=== PATIENT | female | born 1975 | race African-American/Black ===

== ENCOUNTER 2023-12-24 21:19 | Inpatient (IN) | payer BC, SELFPAY ==
[2023-12-24] VITALS (10 sets, daily range): BP systolic 107–137; BP diastolic 61–82
[2023-12-24 15:42] LABS: % Basophils 0.6 % (0-2); % Immature Granulocytes 0.8 % (0-0.5); % Monocytes 11.6 % (1.7-9.3); Absolute Basophils 0.1 10^3/uL (0-0.2); Absolute Immature Granulocytes 0.1 10^3/uL (0-0.05); Absolute Lymphocytes 1.9 10^3/uL (1.2-3.4); Absolute Monocytes 0.9 10^3/uL (0.1-0.6); Absolute Neutrophils 4.8 10^3/uL (1.4-6.5); Hematocrit 44.1 % (37.0-47.0); Hemoglobin 15.4 g/dL (12.0-16.0); Mean Corp Hgb Conc. 34.9 g/dL (33.0-37.0); Mean Corpuscular Hgb 29.5 pg (27.0-31.0); Mean Corpuscular Volume 84.5 fL (81.0-99.0); Mean Platelet Volume 10.3 fL (7.4-10.4); Nucleated Red Blood Cells % 0 %; Platelet Count 281 10^3/uL (130-400); Red Blood Cell Count 5.22 10^6/uL (4.20-5.40); Red Cell Dist. Width 12.9 % (11.5-14.5); White Blood Cell Count 7.8 10^3/uL (4.8-10.8)
[2023-12-24] MEDS: NSS 1000 IV ×2 (16:11→20:48)
[2023-12-24] MEDS: ZOFRAN 4 MG IV (16:11)
[2023-12-24] MEDS: PROTONIX IV 80 MG IV (16:11)
[2023-12-24] MEDS: DILAUDID 1 MG IV (16:11)
[2023-12-24 16:14] LABS: ALT (SGPT) 18 U/L (0-35); AST (SGOT) 18 U/L (14-36); Albumin 4.7 g/dl (3.5-5.0); Alkaline Phosphatase 123 U/L (38-126); Blood Urea Nitrogen 12 mg/dl (7-17); Calcium 10.7 mg/dl (8.4-10.2); Carbon Dioxide < 5 mmol/L (22-30); Chloride 109 mmol/L (98-107); Glucose 329 mg/dl (70-99); Lipase 48 U/L (23-300); Potassium 4.4 mmol/L (3.5-5.1); Sodium 138 mmol/L (135-145); Total Bilirubin 0.7 mg/dl (0.2-1.3); Total Protein 8.4 g/dl (6.3-8.2); eGFR > 60.00
[2023-12-24] MEDS: CARAFATE 1 GRAM PO (16:40)
[2023-12-24] MEDS: MAALOX 50 PO (16:40)
[2023-12-24 16:46] LABS: Venous Blood Gas B.E. -21.4 mmol/L (-4 to +4); Venous Blood Gas HCO3 6.5 mmol/L (22-27); Venous Blood Gas pCO2 21 mmHg (35-48); Venous Blood Gas pO2 97 mmHg (30-50)
[2023-12-24 17:40] LABS: B-Hydroxybutyrate > 9.0 mmol/L (0.02-0.27)
--- NOTE | 2023-12-24 17:44 | ED.GENMED ---
History of Present Illness
General
Chief Complaint: Abdominal Symptoms
Source: patient
Exam Limitations: none
Time Seen by Provider: 12/24/23 15:31
Nursing documentation reviewed up to this point in time: agreed with
History of Present Illness
History of Present Illness:
Patient is a 48-year-old female presents to the emergency department complaining of chest pain with chills and weakness. Patient states she can eat for the past 2 days. Patient's had continuous nausea and vomiting. Patient denies any melena or
hematochezia. Patient denies any diarrhea. Patient denies lightheadedness. Patient was placed on steroids for back pain. Since then the patient has gotten progressively worse. Patient does not take any other medications. Patient denies
shortness of breath or palpitations. Patient denies any symptoms.
Past History
Past History
ED Past Medical History: None
ED Past Surgical History:
Social History
Tobacco: Non-smoker
Review of Systems
Review of Systems
All Other Systems: ROS reviewed and negative except as documented in HPI and ROS
Constitutional: Reports fatigue and chills; Denies fever
EENT: Reports no symptoms
Respiratory: Reports no symptoms
Cardiac: Reports chest pain
ABD/GI: Reports abdominal pain, nausea, vomiting and anorexia; Denies diarrhea, bloody stools or black stools
: Reports no symptoms
Musculoskeletal: Reports no symptoms
Skin: Reports no symptoms
Neurological: Reports no symptoms
Hematologic/Lymphatic: Reports no symptoms
Phy Exam
Physical Exam
Physical Exam:
Physical Exam
General: No apparent significant distress, alert and appropriate, well nourished, dry mucous membranes
HENT: Normocephalic, supple with no lymphadenopathy, no thyromegaly
Eyes: Clear sclera, conjuctiva without injection
Heart: Regular rhythm and rate. No S3, S4. No murmur. No NVD
Lungs: No respiratory distress, no stridor, lung sounds clear and equal bilaterally, chest wall symmetrical and nontender
Abdomen: Soft, diffuse midepigastric tenderness without guarding or rebound, no organomegaly, no CVA tenderness, BS good
Neuro: Alert and oriented x 3, CN II - XII intact, no motor focality, no cerebellar dysfunction
Skin: no rash
Psychiatric: well kept. interactive and cooperative
Extremities: No edema, cyanosis, tenderness
Course
Orders/Labs/Results
Orders:
Orders
12/24/23 14:02
EKG [Electrocardiogram (*1)] Urgent
Reason for Study: Shortness of Breath
EKG- Treatment ONCE
12/24/23 15:20
IV Insert/Care/Rem.- Treatment PRN
Urinalysis Reflex To Culture Urgent
Date Specimen was Collected: 12/24/23
Time Specimen was Collected: 15:20
12/24/23 15:33
B-Hydroxybutyrate Urgent
Comment: B-HYDROXYBUTYRATE ADDED ON BY FLOOR 4:30PM 12-24-23
Complete Blood Count/With Diff Urgent
Comprehensive Metabolic Panel Urgent
HCG, Serum Qualitative Screen Urgent
Lipase Urgent
12/24/23 16:03
0.9% Sodium Chloride 1000 ml [Nss] 1,000 ml IV BOLUS
HYDROmorphone [Dilaudid] 1 mg IV NOW STA
Ondansetron Injectable [Zofran] 4 mg IV NOW STA
Pantoprazole [Protonix IV] 80 mg IV NOW STA
Sucralfate [Carafate] 1 gram PO NOW STA
12/24/23 16:04
Mag Hydrox/Al Hydrox/Simeth [Maalox] 30 ml Phenobarb/Hyoscy/Atropine/Scop [] 10 ml Viscous Lidocaine 2% [Xylocaine Viscous Cup] 10 ml PO NOW
12/24/23 16:08
Mag Hydrox/Al Hydrox/Simeth [Maalox] 30 ml .ROUTE .STK-MED ONE
Phenobarb/Hyoscy/Atropine/Scop [] 10 ml .ROUTE .STK-MED ONE
12/24/23 16:09
Viscous Lidocaine 2% [Xylocaine Viscous Cup] 15 ml .ROUTE .STK-MED ONE
12/24/23 16:30
B-Hydroxybutyrate Urgent
Lactic Acid Urgent
12/24/23 16:31
CT Abd/Pel (IV only)-DH only Urgent
Comment:
Reason For Exam: diffuse abd pain/tender
12/24/23 16:34
Add On- LAB Urgent
Tests Added?: b-hydroxybutyrate
12/24/23 16:38
Venous Blood Gas Urgent
%Oxygen/Room Air: 21
12/24/23 17:33
Add On- LAB Urgent
Tests Added?: qualitative hcg serum
12/24/23 17:44
Bedside Glucose- Treatment Q1H
IV Insert/Care/Rem.- Treatment PRN
Insulin Human Regular [Novolin R] 8 units IV NOW STA
Reg Insulin 100 Units/100 ml [Novolin R Insulin Infusion] 100 units in 100 ml IV NOW
12/24/23 17:45
Basic Metabolic Panel Q2H
12/24/23 18:00
KCl 20 Meq/D5.45%Sodchl 1000ML [D5/0.45%NSS with KCL 20 MEQ] 20 meq in 1,000 ml IV 200 mls/hr
12/24/23 19:45
Basic Metabolic Panel Q2H
12/24/23 21:45
Basic Metabolic Panel Q2H
Abnormal Lab Results
12/24/23 12/24/23
15:33 16:38
Abs Immat Gran (auto) 0.1 H 10^3/uL
(0-0.05)
Absolute Monos (auto) 0.9 H 10^3/uL
(0.1-0.6)
Immature Gran % 0.8 H %
(0-0.5)
Monocytes % 11.6 H %
(1.7-9.3)
VBG pH 7.10 L*
(7.32-7.43)
VBG pCO2 21 L mmHg
(35-48)
VBG pO2 97 H mmHg
(30-50)
VBG HCO3 6.5 L mmol/L
(22-27)
Chloride 109 H mmol/L
(98-107)
Carbon Dioxide < 5 L* mmol/L
(22-30)
Creatinine 0.5 L mg/dL
(0.6-1.0)
Glucose 329 H mg/dl
(70-99)
Calcium 10.7 H mg/dl
(8.4-10.2)
Total Protein 8.4 H g/dl
(6.3-8.2)
B-Hydroxybutyrate > 9.0 H mmol/L
(0.02-0.27)
12/24/23 15:33
Vital Signs
Initial and Last Documented VS:
Initial Vital Signs
Temp Pulse Resp BP Pulse Ox
97.9 F 114 16 126/82 98
12/24/23 13:58 12/24/23 13:58 12/24/23 13:58 12/24/23 13:58 12/24/23 13:58
Last Documented Vital Signs
Temp Pulse Resp BP Pulse Ox
97.9 F 108 17 123/71 99
12/24/23 13:58 12/24/23 17:15 12/24/23 17:15 12/24/23 17:00 12/24/23 17:15
*Pulse Oximetry
Patient hypoxic: no
*EKG
Interpreted by ED Provider?: Yes
EKG Intrepretation Date: 12/24/23
EKG Intrepretation Time: 17:46
Interpretation: abnormal
Comparison EKG: no comparison EKG present
Heart Rate: 110
Rate: tachycardiac
Rhythm: sinus
[place]: normal axis
Interval: normal interval
QRS Pattern: normal QRS
Ischemia: no ischemia
*Third Hand Interpretation
Rate: tachycardiac
Interpretation: abnormal
Heart Rate: 110
Rhythm: sinus
*Critical Care Note
Total Time (30-74mins, 75-104mins- exclusive of procedures): 45 minutes
Update Note
Update Note:
Patient has a significant gapped metabolic acidosis. Patient's blood sugar is elevated. Patient does not take any medications. Because the patient's blood sugars in the 300s we will start the patient on D5 5 with half-normal given that the sodium
is normal range and add potassium. Expect potassium to fall. Patient will be admitted.
ED Attending Note
-
Portions of this chart may have been created with voice recognition software.� Occasional wrong word or��sound alike� substitutions may have occurred due to the inherent limitations of voice recognition software.
Discharge Plan
Departure
Patient Disposition: Admit
Date of Disposition: 12/24/23
Time of Disposition: 17:48
Admit to: ICU
Admit to doctor: Hospitalist
Presentation/result/management discussed w/ accepting MD/DO: Hospitalist
Patient with high blood pressure during this ER visit?: No
Condition: Serious
Covid-19: Not Applicable
Discharge Problem:
Metabolic acidosis, DKA (diabetic ketoacidosis)
Prescriptions:
No Action
methylprednisolone 4 mg Tablets,Dose Pack
0 mg PO PER PKG DIR
cyclobenzaprine 5 mg tablet
5 mg PO TIDPRN PRN (Reason: muscle spasms)
Referrals:
NONE,* [Family Provider] -
Interventions
Interventions:
*Risk Screen - Suicide Last Done: 12/24/23 15:41
*General Assessment Last Done: 12/24/23 15:42
*Neglect/Abuse Screening Last Done: 12/24/23 15:41
ED- Fall Risk Assessment Last Done: 12/24/23 15:41
*ED COVID-19 Vaccine History Last Done: 12/24/23 15:42
FW-Ubcllt-Pygufcmnhx Assessment Last Done: 12/24/23 15:40
Discharge Date and Time
Print Language: SWEDISH
[2023-12-24 18:24] LABS: HCG, Serum Qualitative Screen Negative
[2023-12-24] MEDS: D5/0.45%NSS with KCL 20 MEQ 30 IV (18:25)
[2023-12-24 18:28] LABS: Glucose - Point of Care 343 mg/dl (70-99)
[2023-12-24 18:35] LABS: Blood Urea Nitrogen 12 mg/dl (7-17); Calcium 9.4 mg/dl (8.4-10.2); Carbon Dioxide < 5 mmol/L (22-30); Chloride 112 mmol/L (98-107); Glucose 313 mg/dl (70-99); Potassium 4.6 mmol/L (3.5-5.1); Sodium 138 mmol/L (135-145); eGFR > 60.00
[2023-12-24] MEDS: NOVOLIN R 8 UNITS IV (18:36)
[2023-12-24] MEDS: NOVOLIN R INSULIN INFUSION 100 IV ×2 (18:37→22:30)
[2023-12-24 19:42] LABS: Glucose - Point of Care 284 mg/dl (70-99)
[2023-12-24 20:28] LABS: Blood Urea Nitrogen 11 mg/dl (7-17); Calcium 9.6 mg/dl (8.4-10.2); Carbon Dioxide < 5 mmol/L (22-30); Chloride 112 mmol/L (98-107); Estimated Creatinine Clearance 107 ml/min; Glucose 215 mg/dl (70-99); Potassium 3.7 mmol/L (3.5-5.1); Sodium 139 mmol/L (135-145); eGFR > 60.00
[2023-12-24] MEDS: D5/0.45%NSS with KCL 20 MEQ 1000 IV (20:31)
[2023-12-24 20:48] LABS: Glucose - Point of Care 175 mg/dl (70-99)
--- NOTE | 2023-12-24 21:01 | HPS.HSE ---
Family Physician
-
Family Physician: * NONE
Chief Complaint
-
Nausea and vomiting
History of Present Illness
48-year-old female with no known major medical disease, who was recently-lower back pain went to urgent care 2 weeks to and started on Medrol Dosepak and Flexeril, she completed the doses, over the last few days she was not been feeling
well-progressively worsening epigastric pain with indigestion with nausea and nonbloody vomiting, admit basically was unable to eat anything over the last few days, denies any diarrhea or any bleeding event or change in stool color.
Denies any chest pain or shortness of breath or cough or congestion, no headache or vision change or any weakness or numbness in extremity, sick contacts or recent travel dining outside.
Patient admitted prior to starting the steroid she was taking NSAID regularly for this back pain
Reportedly she is not taking any medication and she lives with the family independently there is a strong family history of diabetes including her mother.
Workup in the ER basically showed severe metabolic acidosis venous pH is 7.1 and her sugar was 300.
Given a liter of normal saline also Protonix IV and Carafate also started on insulin drip with D5 normal saline and potassium as her potassium initially was 4.5 and trended down to 3.7
Overall she is feeling better more rejuvenated she thinks she feels hungry and she wants to eat something. Accompanied by her daughter at the bedside.
Medical History
Past Medical History
Past Medical History: Reports Other
Additional Past Medical History:
Past medical history reviewed: None
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
Family history: Strongly positive for diabetes and multiple family members including her mother.
Past Surgical History: Reports Other
Social History
Unable to obtain full social history at this time due to: Other
Living: Other
Family History
Family History: Other
Allergies / Home Medications
Allergies reflects when Allergies were last updated in [facility].
Home Medications with original date entered in [facility]
Allergy/Medication List:
Allergies
Allergy/AdvReac Type Severity Reaction Status Date / Time
No Known Allergies Allergy Verified 12/24/23 13:58
Home Medications
Patient currently not taking any medication, Completed Flexeril and muscle prednisone.
Review of Systems
-
A 12 point ROS was completed and negative except as noted: Yes
Physical Exam
Vital Signs
Vital Signs
Temp Pulse Resp BP Pulse Ox
97.9 F 110 17 107/69 100
12/24/23 13:58 12/24/23 20:00 12/24/23 20:00 12/24/23 20:00 12/24/23 20:00
Physical exam:
General: Awake, alert and oriented x3, not in distress and holds appropriate conversation.
HEENT: No active discharge, ecchymosis or bruising, dry lips, tongue and mucous membrane.
Eyes: No discharge or red conjunctiva, no nystagmus, pupils are reactive and equal
Neck:Supple, no JVD no bruit no goiter.
Respiratory: Normal AP contour and diameter, normal chest wall movement, normal respiratory effort, no respiratory distress,
Lungs: Good air entry bilaterally, no wheezing or rhonchi, no rales or crackles
Heart: S1, S2 regular, normal rate, no added sound.
Gastrointestinal: Positive bowel sounds, soft, nontender, no guarding or rigidity or organomegaly
Musculoskeletal: , no chest wall abnormality or tenderness. All joints and extremities have good range of motion, no muscle tenderness or any joint swelling or tenderness.
Extremities: No pitting edema, good peripheral pulses, good range of motion
Skin: Warm and dry, no ulceration, normal color.
Neurological: Awake, alert and oriented x3, speech clear and comprehensive, good muscle tone, normal sensory and motor function
Psychiatric: Normal mood, normal thought and judgment, normal affect,
Physical Exam
General: Other
Laboratory Results
-
12/24/23 15:33
Laboratory Results
Lactic Acid Cancelled 12/24/23 16:30
Total Bilirubin 0.7 mg/dl (0.2-1.3) 12/24/23 15:33
AST 18 U/L (14-36) 12/24/23 15:33
ALT 18 U/L (0-35) 12/24/23 15:33
Alkaline Phosphatase 123 U/L (38-126) 12/24/23 15:33
Lipase 48 U/L (23-300) 12/24/23 15:[address]
CT abd and Pelvis:
Mild hepatomegaly.
Limited evaluation of intestinal tract as a result of lack of oral contrast and paucity of intra-abdominal fat, without intestinal obstruction, free air or gross focal right lower quadrant inflammatory changes.
Renal excretion predominantly symmetric.
EKG shows sinus tachycardia rate around 110, AR 142, QTc 443 otherwise no acute abnormality
Data Reviewed
-
CT Scan: Image Personally Visualized and interpreted and Discussed with Patient
Medical Tests (Nuc Med, Echo, EKG etc): Image Personally Visualized and interpreted and Discussed with Patient
Lab Data: Labs Reviewed by me and Discussed with Patient
Impression/Plan
-
IMPRESSION:
48-year-old female with no known major medical history, presented to the hospital complaining of epigastric pain, nausea and nonbloody vomiting over the last 3 to 4-day with not able to keep anything down and was not been eating drinking much, all
of these preceded by taking the Medrol Dosepak for back pain prior to this was taking NSAID, workup in the ER concerning for metabolic acidosis and likely DKA with no known history of diabetes in the past.
Metabolic acidosis
Diabetic ketoacidosis
Probable undiagnosed history of diabetes
Strong family history of diabetes
Dehydration
Nausea and vomiting
Epigastric pain likely gastritis given peptic ulcer disease could be considered with taking NSAIDs and steroid.
PLAN:
Admitted in ICU because of severe acidosis
Follow DKA protocol
Continue insulin drip with D5 and half-normal saline and potassium
Check BMP and venous blood gas every 2 hours
Check magnesium and phosphorous
Will give another liter of normal saline right now
Close monitoring of blood sugar and vital sign
Once DKA resolved then we may need to give her subcutaneous insulin an hour or 2 before discontinuing the insulin drip and starting Accu-Chek
Check A1c to rule out diabetes if any otherwise is elevated sugar and DKA possibly related to the steroid but very likely she has diabetes based on a strong family history.
Critical care consult
Check TSH, B12 and folic acid
Start PPI IV and Maalox as needed
Overall feels better and if epigastric pain and burning is continue also symptomatic in regard nausea and vomiting we will get a GI consult
If the workup showed diabetes and need endocrinology consult on referral.
She is feeling better I will start on full liquid diet and advance as tolerated
All discussed with the patient in detail and expressed understanding
Discussed with daughter at the bedside
Discussed with the nurse
DVT prophylaxis Lovenox
CODE STATUS is full
[2023-12-24 21:21] LABS: Venous Blood Gas B.E. -16.4 mmol/L (-4 to +4); Venous Blood Gas HCO3 10.5 mmol/L (22-27); Venous Blood Gas O2 Sat % 85.1 %; Venous Blood Gas pCO2 28 mmHg (35-48); Venous Blood Gas pO2 50 mmHg (30-50)
--- NOTE | 2023-12-24 21:21 | EDRN ---
Attempted to call report to ICU - will call back.
[2023-12-24 21:28] LABS: Venous Blood Gas pH 7.18 (7.32-7.43)
--- NOTE | 2023-12-24 21:30 | EDRN ---
Report given to Dereje in ICU
--- NOTE | 2023-12-24 21:40 | PTCARENOTE ---
Received pt from ER approx 2140.
AAOX3, no neurological deficits noted upon assessment.
Sinus tach, Normotensive, normothermic.
On insulin gtt, d5/0.45 w/ 20 K from ER, see flowsheet/mar for further details.
Anion gap 22 from ER labs, glucose 266 from ER.
Daughter bedside, all questions answered at this time.
[2023-12-24 22:00] LABS: Glucose - Point of Care 266 mg/dl (70-99)
[2023-12-24 23:30] LABS: Glucose - Point of Care 144 mg/dl (70-99)
[2023-12-24 23:44] LABS: Blood Urea Nitrogen 11 mg/dl (7-17); Carbon Dioxide 9 mmol/L (22-30); Chloride 112 mmol/L (98-107); Estimated Creatinine Clearance 107 ml/min; Glucose 155 mg/dl (70-99); Magnesium 1.9 mg/dl (1.6-2.3); Phosphorus 2.2 mg/dl (2.5-4.5); Potassium 4.5 mmol/L (3.5-5.1); Sodium 135 mmol/L (135-145); eGFR > 60.00
--- NOTE | 2023-12-24 23:55 | PTCARENOTE ---
Cont. on insulin gtt. see titration flowsheet for details.
Remains on d5/0.45 nss 20 meq.
sleeping, all vitals stable, assessment WNL.
[2023-12-25] VITALS (15 sets, daily range): BP systolic 94–135; BP diastolic 55–84; BMI 27.3
[2023-12-25 00:06] LABS: INR 1.09; PT 13.9 Sec (11.4-14.6)
[2023-12-25 00:07] LABS: APTT 24.6 Sec (23.4-35.0)
[2023-12-25 00:44] LABS: Glucose - Point of Care 170 mg/dl (70-99)
[2023-12-25 01:54] LABS: Glucose - Point of Care 158 mg/dl (70-99)
[2023-12-25 02:06] LABS: Blood Urea Nitrogen 11 mg/dl (7-17); Calcium 8.6 mg/dl (8.4-10.2); Carbon Dioxide 9 mmol/L (22-30); Chloride 113 mmol/L (98-107); Estimated Creatinine Clearance 107 ml/min; Glucose 170 mg/dl (70-99); Potassium 4.2 mmol/L (3.5-5.1); Sodium 135 mmol/L (135-145); eGFR > 60.00
[2023-12-25 02:40] LABS: Glucose - Point of Care 153 mg/dl (70-99)
[2023-12-25 03:43] LABS: Glucose - Point of Care 151 mg/dl (70-99)
--- NOTE | 2023-12-25 04:09 | PTCARENOTE ---
Remains on insulin gtt, d5/0.45 w/ 20 meq.
Anion gap closing @ 13, formula w/o albumin/K.
Assessment remains at baseline w/o changes.
New line placed.
--- NOTE | 2023-12-25 04:18 | PTCARENOTE ---
Pt refused all morning lab work. ICU Provider aware.
[2023-12-25] MEDS: D5/0.45%NSS with KCL 20 MEQ 1000 IV ×2 (04:21→12:47)
[2023-12-25 04:35] LABS: Glucose - Point of Care 160 mg/dl (70-99)
[2023-12-25 05:49] LABS: Glucose - Point of Care 162 mg/dl (70-99)
[2023-12-25 06:42] LABS: Glucose - Point of Care 184 mg/dl (70-99)
--- NOTE | 2023-12-25 07:16 | CON.INTV ---
Consultation
Consultation Request
Date/Time Consultation Requested: 12/25/23
Date/Time Consultation Performed: 12/25/23
Performing Provider: Yandel
Reason for Consultation: ICU
Medical History
-
History of Present Illness:
Patient is a 48-year-old female with no significant past medical history presenting to the hospital with epigastric pain, nausea and vomiting over the past 3 to 4 days. She also notes decreased p.o. intake. In the ER, she was noted to have blood
sugar over 300, venous pH 7.1 with anion gap metabolic acidosis suggesting new onset diabetes complicated by diabetic ketoacidosis. She is admitted to ICU for insulin drip. She has no previous history of diabetes but there is strong family history.
Past Medical History
Past Medical History: Other (see list below)
Social History
Tobacco: Non-smoker
Alcohol: None
Drug: None
Family History
Family History: Reviewed & Not Pertinent
Allergies / Home Medications
Allergies
Allergy/AdvReac Type Severity Reaction Status Date / Time
No Known Allergies Allergy Verified 12/24/23 13:58
Home Medications
�Medication �Instructions �Recorded �Confirmed �Last Taken �Type
cyclobenzaprine 5 mg tablet 5 mg PO TIDPRN PRN muscle spasms 12/24/23 12/24/23 2 Days Ago History
~12/22/23
methylprednisolone 4 mg tablets in 0 mg PO PER PKG DIR 12/24/23 12/24/23 2 Days Ago History
a dose pack Anti-Inflammatory ~12/22/23
Review of Systems
-
History Source: Patient
All other systems: Negative unless noted
Vitals / Labs / Diagnostic Testing
Vital Signs
Temp Pulse Resp BP Pulse Ox
98.5 F 85 11 106/58 100
12/25/23 03:38 12/25/23 05:00 12/25/23 05:00 12/25/23 05:00 12/25/23 05:00
Laboratory Results
12/24/23
22:35
PT 13.9
INR 1.09
APTT 24.6
Diagnostic Testing:
Physical Exam
-
HEENT: Normocephalic, Anicteric and Moist Mucous Membranes
Cardiovascular: S1/S2 and Regular Rhythm
Respiratory: Clear and Non-Labored Respirations
GI: Soft, Non Distended and Non Tender
Neurology: Awake, Alert, Oriented, AO x 3 and No Motor Deficits
Skin: Warm, Dry and Good Color
General: Comfortable and Other (NAD)
Assessment
-
Patient is a 48-year-old female with no significant past medical history presenting to the hospital with epigastric pain, nausea and vomiting over the past 3 to 4 days. She also notes decreased p.o. intake. In the ER, she was noted to have blood
sugar over 300, venous pH 7.1 with anion gap metabolic acidosis suggesting new onset diabetes complicated by diabetic ketoacidosis. She is admitted to ICU for insulin drip.
Diabetic ketoacidosis
New onset Diabetes
Strong family history of diabetes
Anorexia, decreased PO intake
Nausea and vomiting
Epigastric pain
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
None
Plan
DKA, admitting BS elevated, AG >25--now 13
Started on insulin drip, can wean today following protocol, start D5 IVFs
Consult diabetic nurse for insulin recommendations
Can restart diet once able to bridge
New onset diabetes, we discussed insulin use at home
She has no PCP, needs to get one
HbA1c pending
Education
Diet transition following DKA protocol
GI ppx not indicated
Hemodynamically stable, not requiring pressors.
No prior h/o cardiac disease
Monitor on telemetry
Oxygen needs: Stable on RA
No prior h/o pulmonary disease, smoking hx includes trivial use when younger, never pack use
Imaging reviewed without acute findings
Creat at baseline, follow UO
Acid/base status: AGMA 2/2 DKA, follow until AG <12
No signs/symptoms suspicious for infectious etiology at this time.
Will observe off antibiotics for now.
Follow fever trend, WBC count.
DVT ppx SCDs
Once transitioned off insulin protocol can transfer to floors. We will sign off upon transfer.
Diagnostic Data
Chest X-Ray: NAD
CT Scan: AP 12/24/23- Mild hepatomegaly. Limited evaluation of intestinal tract as a result of lack of oral contrast and paucity of intra-abdominal fat, without intestinal obstruction, free air or gross focal right lower quadrant inflammatory
changes. Renal excretion predominantly symmetric.
Echo:
PFT's:
Reports and relevant images were personally reviewed.
-----
Critical care time 50 mins -- this includes review of history, physical exam, medications, hemodynamic/ventilator parameters, laboratory data, imaging and discussion with house staff, pharmacy, respiratory therapy, centrifugal supervisor, and nursing.
[2023-12-25 07:57] LABS: Glucose - Point of Care 157 mg/dl (70-99)
--- NOTE | 2023-12-25 08:15 | W.PN.HOSP.TC ---
Today's Communication/Plan
-
NPO
renew insulin drips/IVF
replete lytes/ions
Assessment / Plan
Assessment / Plan
pt is a 48 year old female
Metabolic acidosis likely due to Diabetic ketoacidosis with remote hx of DM in past (she told me)(Strong family history of diabetes)--cont DKA protocol with IV insulin, Q4 BMP and hourly accuchecks--replete lytes/ions--Once DKA resolved then we may
need to give her subcutaneous insulin an hour or 2 before discontinuing the insulin drip and starting Accu-Chek, will consult DM [facility] for insulin management in AM--HGB A1C pending--TSH, B12 and folic acid pending
Dehydration likely due to Nausea and vomiting as well as DKA--IVF--keep NPO for now until AGAP closes
Epigastric pain likely gastritis given peptic ulcer disease could be considered with taking NSAIDs and steroid--cont IV PPI
DVT prophylaxis Lovenox
CODE STATUS-- full code
Total Critical Care Time 31 minutes. I was immediately available to the patient and staff. I personally examined, reviewed labs, diagnostic images/reports, interpretations, treatment plans, discussed patient care with other providers and family
or caregivers (if patient is unable to make decisions), entered orders as appropriate and documented the medical record.
Anticipated Discharge: 24 - 48 hours
Subjective/Interval History
-
Date of Service: December 25, 2023
pt asking when she is going home--nursing reports refused labs overnight
Objective Data
-
Labs:
Laboratory Results
12/24/23 12/24/23 12/24/23
19:56 21:45 22:35
WBC
Hgb
Hct
Plt Count
PT 13.9
INR 1.09
APTT 24.6
Sodium 139 Cancelled 135
Potassium 3.7 Cancelled 4.5
Chloride 112 H Cancelled 112 H
Carbon Dioxide < 5 L* Cancelled 9 L*
BUN 11 Cancelled 11
Creatinine 0.5 L Cancelled 0.4 L
Glucose 215 H Cancelled 155 H
Calcium 9.6 Cancelled 9.0
12/25/23 12/25/23 12/25/23
01:41 06:00 10:00
WBC Pending
Hgb Pending
Hct Pending
Plt Count Pending
PT
INR
APTT
Sodium 135 Pending Pending
Potassium 4.2 Pending Pending
Chloride 113 H Pending Pending
Carbon Dioxide 9 L* Pending Pending
BUN 11 Pending Pending
Creatinine 0.4 L Pending Pending
Glucose 170 H Pending Pending
Calcium 8.6 Pending Pending
12/25/23 12/25/23 12/25/23
14:00 18:00 22:00
WBC
Hgb
Hct
Plt Count
PT
INR
APTT
Sodium Pending Pending Pending
Potassium Pending Pending Pending
Chloride Pending Pending Pending
Carbon Dioxide Pending Pending Pending
BUN Pending Pending Pending
Creatinine Pending Pending Pending
Glucose Pending Pending Pending
Calcium Pending Pending Pending
Vital Signs:
max temp for 24 hours
12/25/23
03:38
Temp 98.5 F
Vital Signs
Temp Pulse Resp BP Pulse Ox
98.3 F 85 11 106/58 100
12/25/23 07:37 12/25/23 05:00 12/25/23 05:00 12/25/23 05:00 12/25/23 05:00
I&O
12/24/23 12/25/23 12/26/23
06:59 06:59 06:59
Intake Total 966 / 966
Output Total 0 / 0
Balance 966 / 966
Review of Systems
-
All other systems: Reviewed and negative
Physical Exam
-
General: Well Developed, Well Nourished and No Apparent Distress
HEENT: Normocephalic and Atraumatic
Respiratory: Clear to Auscultation; Negative Wheezes or Rhonchi
Cardiac: Regular Rhythm and S1/S2; Negative Murmur
GI: Soft, Nontender, Nondistended and Normal Bowel Sounds
Musculoskeletal: No Clubbing, No Cyanosis and No Edema
Neuro: Awake and Alert
Psych: Calm
[2023-12-25] MEDS: PROTONIX IV 40 MG IV (08:23)
[2023-12-25] MEDS: NSS (PRESERVATIVE FREE) 10 ML IV (08:23)
--- NOTE | 2023-12-25 08:30 | PTCARENOTE ---
Assumed care of pt at 0715 following shift report. Pt asleep, woken easily to name. Denies complaints of pain or SOB. Insulin gtt and IVF D5 1/2NS w/ 20 meq KCL @ 125ml/hr per ordered protocol. Physical assessment completed as documented. Pt
agreeable to lab draws at this time- specimen sent to lab. Pt placed on tele pack for ease of mobility. Pt able to ambulate to BR w/o assistance- gait steady. Pt reports recent hx of MAYER at home- none noted w/ ambulation to BR. Call bobby w/in pt
reach and safe environment maintained.
[2023-12-25 08:39] LABS: Hematocrit 34.7 % (37.0-47.0); Hemoglobin 12.4 g/dL (12.0-16.0); Mean Corp Hgb Conc. 35.7 g/dL (33.0-37.0); Mean Corpuscular Hgb 29.4 pg (27.0-31.0); Mean Corpuscular Volume 82.2 fL (81.0-99.0); Mean Platelet Volume 10.1 fL (7.4-10.4); Platelet Count 238 10^3/uL (130-400); Red Blood Cell Count 4.22 10^6/uL (4.20-5.40); White Blood Cell Count 6.7 10^3/uL (4.8-10.8)
[2023-12-25 08:40] LABS: Venous Blood Gas B.E. -7.6 mmol/L (-4 to +4); Venous Blood Gas HCO3 17.4 mmol/L (22-27); Venous Blood Gas O2 Sat % 96.2 %; Venous Blood Gas O2 Therapy RA; Venous Blood Gas pCO2 33 mmHg (35-48); Venous Blood Gas pH 7.33 (7.32-7.43); Venous Blood Gas pO2 72 mmHg (30-50)
[2023-12-25 09:08] LABS: Glucose - Point of Care 164 mg/dl (70-99)
[2023-12-25 09:53] LABS: Blood Urea Nitrogen 10 mg/dl (7-17); Calcium 9.2 mg/dl (8.4-10.2); Carbon Dioxide 15 mmol/L (22-30); Chloride 112 mmol/L (98-107); Estimated Creatinine Clearance 107 ml/min; Glucose 177 mg/dl (70-99); Magnesium 1.9 mg/dl (1.6-2.3); Phosphorus 1.5 mg/dl (2.5-4.5); Sodium 135 mmol/L (135-145); eGFR > 60.00
[2023-12-25 10:07] LABS: Glucose - Point of Care 161 mg/dl (70-99)
[2023-12-25 11:07] LABS: Glucose - Point of Care 160 mg/dl (70-99)
[2023-12-25 11:12] LABS: Folate > 20.0 ng/ml (2.76-20); Vitamin B12 > 1000 pg/ml (239-931)
[2023-12-25 11:24] LABS: Glycohemoglobin (HgbA1c) 13.2 % (4.0-5.6)
--- NOTE | 2023-12-25 12:00 | PTCARENOTE ---
Pt sitting OOB in chair. Ambulating to BR to void prn. No complaints received or changes from previous assessment findings noted.
[2023-12-25 12:09] LABS: Glucose - Point of Care 178 mg/dl (70-99)
[2023-12-25 13:16] LABS: Glucose - Point of Care 154 mg/dl (70-99)
[2023-12-25] MEDS: NEUTRA-PHOS POWDER PACKET 250 MG PO ×3 (14:03→23:16)
[2023-12-25 14:11] LABS: Glucose - Point of Care 147 mg/dl (70-99)
[2023-12-25 14:53] LABS: Blood Urea Nitrogen 9 mg/dl (7-17); Carbon Dioxide 15 mmol/L (22-30); Chloride 113 mmol/L (98-107); Estimated Creatinine Clearance 107 ml/min; Glucose 158 mg/dl (70-99); Potassium 3.6 mmol/L (3.5-5.1); Sodium 135 mmol/L (135-145); eGFR > 60.00
[2023-12-25 15:39] LABS: Glucose - Point of Care 175 mg/dl (70-99)
[2023-12-25] MEDS: LANTUS 0.0500000000000000028 UNITS SC (15:49)
[2023-12-25] MEDS: NOVOLOG FLEXPEN 5 UNITS SC (16:03)
[2023-12-25] MEDS: NOVOLOG FLEXPEN-MODERATE RESISTANCE 1 UNITS SC (16:03)
[2023-12-25 16:16] LABS: Glucose - Point of Care 164 mg/dl (70-99)
--- NOTE | 2023-12-25 16:50 | PTCARENOTE ---
Pt's anion gap wnl. Dr Koenig aware- orders received. Lantus given as ordered at 1548 and Insulin gtt and D5 1/2NS w/ 20meq KCL d/c'ed at 1648. Pt tolerating diet w/o complication. Pt's daughter here to visit. Pt and her daughter ambulated in
hallway. Pt's gait steady- tolerating increased activity w/o complaint or complication.
[2023-12-25 17:24] LABS: Glucose - Point of Care 188 mg/dl (70-99)
[2023-12-25] MEDS: D5/0.45%NSS with KCL 20 MEQ IV (18:02)
[2023-12-25] MEDS: LOVENOX 40 MG SC (18:23)
[2023-12-25 19:02] LABS: Blood Urea Nitrogen 10 mg/dl (7-17); Calcium 8.8 mg/dl (8.4-10.2); Carbon Dioxide 16 mmol/L (22-30); Chloride 110 mmol/L (98-107); Estimated Creatinine Clearance 107 ml/min; Glucose 234 mg/dl (70-99); Potassium 3.9 mmol/L (3.5-5.1); Sodium 132 mmol/L (135-145); eGFR > 60.00
--- NOTE | 2023-12-25 20:00 | PTCARENOTE ---
rec`d pt at 1900 laying in bed AAOx3. flat affect. on tele pack- SR-ST . OOB ad rona. +pulses. RA POX 99%. uses bathroom self. 22left fa and 18 LAC. plan to check chemistry at 2200. call rosales in reach. safe environment maintained. pt educated on
condition.
--- NOTE | 2023-12-25 21:50 | PTCARENOTE ---
pt refused blood work. pt educated on why she needs it taken. still refusing blood work.
[2023-12-25 22:59] LABS: Glucose - Point of Care 203 mg/dl (70-99)
[2023-12-25] MEDS: LANTUS 0.149999999999999994 UNITS SC (23:00)
--- NOTE | 2023-12-26 04:05 | PTCARENOTE ---
pt refused blood work. pt educated on why she needs it taken. still refusing blood work.
[2023-12-26 05:32] VITALS: BMI 27.4
--- NOTE | 2023-12-26 06:43 | W.PN.INTV ---
Today's Communication / Plan
Recommendations
Continue with diabetic education
Follow blood sugars. Unfortunate patient refusing labs
For transfer out of ICU. We will sign off. Please call with questions
Assessment
-
Patient is a 48-year-old female with no significant past medical history presenting to the hospital with epigastric pain, nausea and vomiting over the past 3 to 4 days. She also notes decreased p.o. intake. In the ER, she was noted to have blood
sugar over 300, venous pH 7.1 with anion gap metabolic acidosis suggesting new onset diabetes complicated by diabetic ketoacidosis. She is admitted to ICU for insulin drip.
Diabetic ketoacidosis
New onset Diabetes
Strong family history of diabetes
Anorexia, decreased PO intake
Nausea and vomiting
Epigastric pain
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
None
Plan/recommendations
Unfortunately, patient is refusing labs
Last blood sugar 203
Off insulin drip
Gap resolved as of yesterday p.m.
Diet has been resumed
Patient apparently had diabetes during in the past, was not aware that she had presently
She does not see a primary physician
Continue with education, nutritional support, diabetic nurse teaching
I educated patient on importance of blood sugar management
Hemoglobin A1c 13.2
Oxygen needs: Stable on RA
No prior h/o pulmonary disease, smoking hx includes trivial use when younger, never pack use
Imaging reviewed without acute findings
Reviewed with primary service, nursing
Patient transferred out of ICU. We will sign off
Diagnostic Data
Chest X-Ray: NAD
CT Scan: AP 12/24/23- Mild hepatomegaly. Limited evaluation of intestinal tract as a result of lack of oral contrast and paucity of intra-abdominal fat, without intestinal obstruction, free air or gross focal right lower quadrant inflammatory
changes. Renal excretion predominantly symmetric.
Echo:
PFT's:
Reports and relevant images were personally reviewed.
-----
Critical care time 50 mins -- this includes review of history, physical exam, medications, hemodynamic/ventilator parameters, laboratory data, imaging and discussion with house staff, pharmacy, respiratory therapy, geography teacher, and nursing.
Subjective Dataa
Subjective Data
Date of Service:
Date of Service: December 26, 2023
Subjective:
Observed patient ambulating in the room without difficulty. She denies chest pain, shortness of breath, nausea, abdominal pain. She is refusing medications. Diet was advanced. She is passing gas.
Objective Data
Data Reviewed
Vital Signs / I&O / Oxygen:
Vital Signs
Temp Pulse Resp BP Pulse Ox
98.7 F 86 13 117/73 99
12/26/23 03:29 12/26/23 06:00 12/25/23 08:00 12/25/23 21:00 12/25/23 20:00
Intake and Output
12/24/23 12/25/23 12/26/23
06:59 06:59 06:59
Intake Total 966 / 1093 1369 / 1369
Output Total 0 / 0
Balance 966 / 1093 1369 / 1369
SaO2 99
Physical Exam
General: Comfortable
HEENT: Normocephalic and Anicteric
Cardiovascular: S1-S2, Regular Rhythm and Murmur (n)
Respiratory: Wheeze (n), Crackles (n), Rhonchi (n) and Non-Labored Respirations
GI: Soft, Non Distended and Non Tender
Neurology: Awake, Alert and No Motor Deficits (Ambulating without difficulty)
Skin: Cyanosis (n) and Rash (n)
[2023-12-26 07:34] LABS: Glucose - Point of Care 217 mg/dl (70-99)
[2023-12-26 07:41] VITALS: BP 130/75
--- NOTE | 2023-12-26 08:00 | PTCARENOTE ---
recd pt handoff at doorway, VS obtained, seen by Dr. Rosalva crews, tsf to med/surg orders obtained, noted, processed. tolerating POs, ambulating around room ad rona as da. cooperative and pleasant. breakfast dose of insulin, pt did help with
pen, dosage calc, priming needle. dose was admin by RN.
--- NOTE | 2023-12-26 08:28 | PN.DE.MGMTRT ---
Insulin Management
- -
12/26/2023: Diabetes Management Consult
48 year old female w/no significant PMH presented to the hospital with epigastric pain, N/V x3-4 days due to severe metabolic acidosis. Glucose on admission was over 300, suggesting new onset diabetes complicated by diabetic ketoacidosis. Pt was
admitted to ICU for insulin drip. Pt reports that prior to admission, she had been c/o low back pain and was started on Medrol Dosepak and Flexeril. States she progressively felt worsen with epigastric pain and indigestion with nausea and non bloody
vomiting, and that she was unable to eat or tolerate anything.
Pt reports significant family hx of [id number] and siblings. Current A1C of 13.2%, Cr 0.8, eGFR>60
Pt awake, A/O x3, sitting up in bed, Daughter- Radha at bedside, both ab[pe to discuss diabetes mgt
Pt was on DKA Protocol and was transitioned to SQ insulin yesterday.
Glucose has remained relatively elevated. 203@ HS and 217 fasting this AM.
Had a lengthy discussion with pt regarding options for management, pt states she will not be able to consistently take insulin injections before meals based on her work schedule. Pt agreeable to combination therapy with long acting insulin and oral
medications
Will start Metformin 500mg BID and Glipizide 5mg BID, 1st doses now. Will stop AC NovoLog
Continue Lantus 15 units @ HS. Pt has been provided with the Contour Next Ez glucometer.
Pt currently has no PCP, she was encouraged to f/u with the resident clinic at the [facility]
Pt was instructed to monitor blood sugar and call Diabetes office on Tuesday to provide glucose readings and determine if doses need to be adjusted.
Diabetes plan of care discussed with Pt's Nurse Caridad and Dr. Koenig
Diabetes History
- -
Type of Diabetes: 2
Pre-Admission Diabetes Regimen
12/25/23 12/25/23 12/25/23
08:22 09:25 09:25
Creatinine Cancelled Cancelled 0.4 L
12/25/23 12/25/23 12/25/23
14:25 18:00 18:31
Creatinine 0.4 L Cancelled 0.5 L
12/25/23 12/25/23
22:00 22:00
Creatinine Cancelled Cancelled
Lab Results
Hemoglobin A1c 13.2 % (4.0-5.6) H 12/25/23 08:22
Insulin Pump Settings
IP Diabetes Regimen
12/25/23 12/25/23 12/25/23
08:22 08:56 09:25
Glucose Cancelled Cancelled
POC Glucose 164 H
12/25/23 12/25/23 12/25/23
09:25 09:56 10:56
Glucose 177 H
POC Glucose 161 H 160 H
12/25/23 12/25/23 12/25/23
11:58 13:04 13:59
Glucose
POC Glucose 178 H 154 H 147 H
12/25/23 12/25/23 12/25/23
14:25 15:28 16:02
Glucose 158 H
POC Glucose 175 H 164 H
12/25/23 12/25/23 12/25/23
17:13 18:00 18:31
Glucose Cancelled 234 H
POC Glucose 188 H
12/25/23 12/25/23 12/25/23
22:00 22:00 22:47
Glucose Cancelled Cancelled
POC Glucose 203 H
12/26/23
07:23
Glucose
POC Glucose 217 H
Meal type: Dinner
Amount consumed: 100%
Patient Education
[2023-12-26] MEDS: NOVOLOG FLEXPEN-MODERATE RESISTANCE 3 UNITS SC ×2 (08:31→13:03)
[2023-12-26] MEDS: NOVOLOG FLEXPEN 5 UNITS SC ×2 (08:32→13:03)
[2023-12-26] MEDS: NEUTRA-PHOS POWDER PACKET 250 MG PO ×2 (08:33→13:12)
--- NOTE | 2023-12-26 09:33 | W.PN.HOSP.TC ---
Assessment / Plan
Assessment / Plan
pt is a 48 year old female
Metabolic acidosis likely due to Diabetic ketoacidosis with remote hx of DM in past (she told me)(Strong family history of diabetes)--cont DKA protocol with IV insulin, Q4 BMP and hourly accuchecks--replete lytes/ions--Once DKA resolved then we may
need to give her subcutaneous insulin an hour or 2 before discontinuing the insulin drip and starting Accu-Chek, will consult DM COTTON OPENER for insulin management in AM--HGB A1C pending--TSH, B12 and folic acid pending
Dehydration likely due to Nausea and vomiting as well as DKA--IVF--keep NPO for now until AGAP closes
Epigastric pain likely gastritis given peptic ulcer disease could be considered with taking NSAIDs and steroid--cont IV PPI
DVT prophylaxis Lovenox
CODE STATUS-- full code
Total Critical Care Time 31 minutes. I was immediately available to the patient and staff. I personally examined, reviewed labs, diagnostic images/reports, interpretations, treatment plans, discussed patient care with other providers and family
or caregivers (if patient is unable to make decisions), entered orders as appropriate and documented the medical record.
Subjective/Interval History
-
Date of Service: December 26, 2023
Objective Data
-
Labs:
Laboratory Results
12/25/23 12/26/23
22:00 06:00
WBC Pending
Hgb Pending
Hct Pending
Plt Count Pending
Sodium Cancelled Pending
Potassium Cancelled Pending
Chloride Cancelled Pending
Carbon Dioxide Cancelled Pending
BUN Cancelled Pending
Creatinine Cancelled Pending
Glucose Cancelled Pending
Calcium Cancelled Pending
Total Bilirubin Pending
AST Pending
ALT Pending
Alkaline Phosphatase Pending
Vital Signs:
Vital Signs
Temp Pulse Resp BP Pulse Ox
98.6 F 90 13 130/75 100
12/26/23 07:31 12/26/23 07:41 12/25/23 08:00 12/26/23 07:41 12/26/23 08:00
I&O
12/25/23 12/26/23 12/27/23
06:59 06:59 06:59
Intake Total 966 / 1093 1369 / 1369 360 / 360
Output Total 0 / 0
Balance 966 / 1093 1369 / 1369 360 / 360
--- NOTE | 2023-12-26 09:36 | W.PN.HOSP.TC ---
Addendum entered and electronically signed by Mercedes Koenig MD 12/26/23 14:04:
I saw and evaluated the patient independently. I reviewed the resident�s note and agree with findings and plan as documented by Dr. Quiñonez.
GENERAL: well developed, well nourished, female in no apparent distress
HEENT: NC/AT--No O2 needs
HEART: regular rate and rhythm, +S1, +S2
LUNGS : clear to auscultation bilaterally
ABDOM: soft, nontender, nondistended, + bowel sounds
EXT: no cyanosis, clubbing, or edema
NEUROLOGIC: grossly intact
Metabolic acidosis likely due to Diabetic ketoacidosis with remote hx of DM in past (she told me)(Strong family history of diabetes)--s/p IV insulin with conversion to SC Lantus and metformin/glipizide by DM FISHER SWORDFISH --apprec DM FISHER SWORDFISH for insulin
management--HGB A1C 13--TSH, B12 and folic acid pending
Dehydration likely due to Nausea and vomiting as well as DKA--s/p IVF-tolerating diet
Epigastric pain likely gastritis given peptic ulcer disease could be considered with taking NSAIDs and steroid
DVT prophylaxis Lovenox
CODE STATUS-- full code
OK for d/c
Original Note:
Today's Communication/Plan
-
Patient is in good condition and ready to be discharged.
Assessment / Plan
Assessment / Plan
pt is a 48 year old female
Presented with metabolic acidosis due to Diabetic ketoacidosis,
DM FISHER SWORDFISH visited patient for insulin management
New lab results:
HGB A1C: 13.2, TSH:0.9 (normal), B12: >1000, folic acid:>20
CODE STATUS-- full code
Anticipated Discharge: Today
Subjective/Interval History
-
Date of Service: December 26, 2023
Patient is oriented and cooperative. She reports improvement of SOB. No nausea or vomiting. No abdominal pain.
Objective Data
-
Labs:
Laboratory Results
12/25/23 12/26/23
22:00 06:00
WBC Pending
Hgb Pending
Hct Pending
Plt Count Pending
Sodium Cancelled Pending
Potassium Cancelled Pending
Chloride Cancelled Pending
Carbon Dioxide Cancelled Pending
BUN Cancelled Pending
Creatinine Cancelled Pending
Glucose Cancelled Pending
Calcium Cancelled Pending
Total Bilirubin Pending
AST Pending
ALT Pending
Alkaline Phosphatase Pending
Vital Signs:
Vital Signs
Temp Pulse Resp BP Pulse Ox
98.6 F 90 13 130/75 100
12/26/23 07:31 12/26/23 07:41 12/25/23 08:00 12/26/23 07:41 12/26/23 08:00
I&O
12/25/23 12/26/23 12/27/23
06:59 06:59 06:59
Intake Total 966 / 1093 1369 / 1369 360 / 360
Output Total 0 / 0
Balance 966 / 1093 1369 / 1369 360 / 360
Review of Systems
-
History Source: Patient
All other systems: Reviewed and negative
Constitutional: Reports No Symptoms
EENT: Reports No Symptoms Reported
Respiratory: Reports No Symptoms
Cardiac: Reports No Symptoms
Abdomen/GI: Reports No Symptoms
Breast: Reports No Symptoms
Genitourinary: Reports No Symptoms
Musculoskeletal: Reports No Symptoms
Skin: Reports No Symptoms
Neuro: Reports No Symptoms
Endocrine: Reports No Symptoms
Hematologic / Lymphatic: Reports No Symptoms
Allergy / Immunology: Reports No Symptoms
Physical Exam
-
General: Well Developed
HEENT: Normocephalic and Moist Mucous Membranes
Respiratory: Clear to Auscultation, Non Labored Respirations and Clear to Percussion
Cardiac: Regular Rhythm
GI: Soft, Nontender, Nondistended and Normal Bowel Sounds
Rectal: Brown
Genito-urinary: No Costovertebral Tender
Musculoskeletal: No Clubbing, No Cyanosis and No Edema
Skin: Normal Turgor
Neuro: Awake, Alert, Oriented, Central Nerve's Intact and No Sensory Deficits
Hematologic / Lymphatic: No Lymphadenopathy
Psych: Calm
Data Reviewed
-
Total Time Spent with Patient (in minutes): 15
[2023-12-26 11:46] LABS: Hematocrit 35.6 % (37.0-47.0); Mean Corp Hgb Conc. 36.5 g/dL (33.0-37.0); Mean Corpuscular Hgb 29.8 pg (27.0-31.0); Mean Corpuscular Volume 81.7 fL (81.0-99.0); Mean Platelet Volume 10.7 fL (7.4-10.4); Platelet Count 247 10^3/uL (130-400); Red Blood Cell Count 4.36 10^6/uL (4.20-5.40); Red Cell Dist. Width 12.9 % (11.5-14.5); White Blood Cell Count 4.7 10^3/uL (4.8-10.8)
[2023-12-26] MEDS: GLUCOPHAGE 500 MG PO (12:15)
[2023-12-26] MEDS: GLUCOTROL 5 MG PO (12:15)
[2023-12-26 12:16] LABS: ALT (SGPT) 16 U/L (0-35); AST (SGOT) 21 U/L (14-36); Albumin 3.3 g/dl (3.5-5.0); Alkaline Phosphatase 91 U/L (38-126); Blood Urea Nitrogen 10 mg/dl (7-17); Calcium 9.2 mg/dl (8.4-10.2); Carbon Dioxide 17 mmol/L (22-30); Chloride 110 mmol/L (98-107); Estimated Creatinine Clearance 107 ml/min; Glucose 201 mg/dl (70-99); Magnesium 2.2 mg/dl (1.6-2.3); Phosphorus 2.7 mg/dl (2.5-4.5); Potassium 4.2 mmol/L (3.5-5.1); Sodium 135 mmol/L (135-145); Total Bilirubin 0.6 mg/dl (0.2-1.3); Total Protein 6.3 g/dl (6.3-8.2); eGFR > 60.00
--- NOTE | 2023-12-26 12:58 | PN.DE ---
Diabetes Education
- -
Diabetes Education
This is a 48 year old female with new T2DM diagnosis, A1C of 13.2%
Met with Ms. Hancock and her Daughter- Radha at bedside for monitor and insulin instructions. Pt has been provided with the Contour Next Ez glucometer. Reviewed proper testing technique for obtaining a blood glucose, new testing pattern given
BID and expected results as noted in take home education booklet. Discussed action of long acting insulins as well as symptoms and treatment of hypoglycemia. Aware to check blood sugar fasting and at bedtime and inject Long acting insulin in outer
thigh or abdomen rotating sites. Aware to store insulin pens that are not in use in the refrigerator. Instructions with good return demonstration using the glucometer and insulin pen were noted and result of 200 mg/dl 2 hrs after breakfast.
Discussed importance of checking blood sugars 2x/day to assess food/medication effect on her BS, reducing CHO intake and being active. Provided information and handout on outpt education classes. Will need RX for test strips and lancets for the
Contour Next Ez glucometer, testing 2x/day, Lantus, metformin and Glipizide as well as pen needles at discharge.
All questions and concerns were addressed and answered to their satisfaction. Pt was provided [facility] [facility] Office number and instructed to call should she have any questions and to provide glucose readings on Tuesday to determine if doses need to be adjusted
--- NOTE | 2023-12-26 13:15 | PTCARENOTE ---
pt and daughter self-administered lunch dose of insulin with minimal cuing.
--- NOTE | 2023-12-26 13:20 | CM ---
Addendum entered by Kev Fuentes 12/26/23 13:46:
Discharge order noted.
Pt is aware, expressed her agreement with discharge.
D/C plan: home no needs. daughter to transport at discharge.
Original Note:
CM following re: discharge planning.
Reviewed pt's chart, met with pt.
Pt is a 48 year old female, admitted with primary dx of DKA.
Pt reports she lives with 19 year old daughter in an apartment 1st floor, 4 steps to enter. Pt described herself as independent in all areas [employer], drives, works
PCP: pt stated she does not have PCP and she stated she will get one after discharged from the hospital. Also, in meantime she might go to urgent care if needed.
Pharmacy: [facility]
D/C plan: home with anticipated no needs. family to transport at discharge.
CM will follow with discharge plan updates as needed.
[2023-12-26 14:05] VITALS: BP 99/68
--- NOTE | 2023-12-26 14:30 | PTCARENOTE ---
instructions reviewed, phone numbers for follow up dietitician and MD obtained and given.
--- NOTE | 2023-12-27 13:11 | W.DCSUMMARY ---
Addendum entered and electronically signed by Mercedes Koenig MD 12/27/23 16:00:
Read, reviewed, and agree. See same day progress note for additional details. Time spent coordinating care, DC planning, review of DC plan of care with resident, transition of care, review of records in EMR, med rec, consults, notes, d/w
consultants, nursing, family, and CM = 45 minutes.
Original Note:
Discharge Summary
Discharge Data
Date of Admission: 12/24/23
Date of Discharge: 12/27/23
Total time spent discharging patient (in min): 45
-
Pending Results: No
Hospital Course
Patient is a 48-year-old female who presented to the emergency department with epigastric pain, persistent nausea and nonbloody vomiting over the last 3 to 4 days prior to admission. Patient had dry mucous membranes and respiratory distress on
physical examination. Patient reported strong family history of diabetes mellitus type 2 and being diagnosed with diabetes mellitus type 2 in the remote past although she had never considered taking medications. Primary workup in the ER was
suggestive of metabolic acidosis due to diabetic ketoacidosis. DKA protocol with IV insulin was started. Patient was subsequently admitted to ICU for management of newly diagnosed diabetes and diabetic ketoacidosis.
Problem #1: Newly diagnosed diabetes and diabetic ketoacidosis: DKA protocol with IV insulin was continued in the ICU along with BMP check every 4 hours and hourly Accu-Cheks. Electrolytes were repleted. Once DKA was resolved, IV insulin was
discontinued and patient received subcutaneous insulin. Patient received DVT prophylaxis with Lovenox through hospital course. The DM MANAGING CONSULTANT was consulted for insulin management and patient was given instructions regarding follow-up with a family
medicine doctor
Patient is stable for discharge. If there are any questions regarding this dictation or hospital stay please call our office number is [phone].
Significant lab findings: HbA1c: 13.2
Imaging findings: Normal chest x-ray; normal abdominal x-ray
Discharge Plan
-
Patient Disposition: Home (Routine Discharge)
Discharge Diagnosis/Procedures: Diabetic Ketoacidosis with newly diagnosed Type 2 Diabetes Mellitus
Condition: Good
Diet: Diabetic, Carb Controlled
Activity: As tolerated
Driving Restrictions: As prior to admission
Bathing Restrictions: OK to Shower
Referrals:
NONE,* [Family Provider] -
Ara Sapp MD, Resident [Family Practice Resident Year1] - in four to six weeks
Prescriptions:
New
(DME) Contour Next Test Strips Strip
Qty: 60 0RF
Rx Instructions:
Pt Testing 2 times a day
(DME) lancets [Microlet Lancet] Misc
Qty: 60 0RF
Rx Instructions:
Pt testing 4 times a day
metformin 500 mg Tablet
500 mg PO BID@0800,1700 Qty: 60 0RF
glipizide 5 mg Tablet
5 mg PO BID@0800,1700 Qty: 60 0RF
(DME) pen needle, diabetic [BD Ultra-Fine Faina Pen Needle] 32 gauge x 5/32' Needle
Qty: 60 0RF
Rx Instructions:
PT TAKING INSULIN DAILY
insulin glargine [Lantus Solostar U-100 Insulin] 100 unit/mL (3 mL) Insulin Pen
15 unit SC HS Qty: 5 0RF
Rx Instructions:
PLEASE TAKE 15 UNITS AT BEDTIME
Continued
cyclobenzaprine 5 mg tablet
5 mg PO TIDPRN PRN (Reason: muscle spasms)
Discontinued
methylprednisolone 4 mg Tablets,Dose Pack
0 mg PO PER PKG DIR
Discharge Orders:
Discharge Patient (As Directed); Ordered 12/26/23
Ordered By: María Quiñonez
Discharge Date and Time
Discharge Date/Time: 12/26/23 14:30
Print Language: VENEZUEL[place]
== END 2023-12-26 14:30 | disposition home or self-care (01) | DRG 639 ==
LOC: ICU 21:19
PROVIDERS: Emergency Medicine; Nurse Practitioner Family; ADMITTING PHYSICIAN Internal Medicine; ATTENDING PHYSICIAN Internal Medicine; CONSULT PHYSICIAN Internal Medicine; EMERGENCY PHYSICIAN Emergency Medicine
DX: E11.10 Type 2 diabetes mellitus with ketoacidosis without coma (principal); E86.0 Dehydration; R63.0 Anorexia; Z68.27 Body mass index [BMI] 27.0-27.9, adult; Z79.52 Long term (current) use of systemic steroids; Z79.899 Other long term (current) drug therapy; Z83.3 Family history of diabetes mellitus
CPT/HCPCS: 71045; 74177; 80048; 80053; 82010; 82607; 82746; 82805; 82962; 83036; 83690; 83735; 84100; 84443; 84703; 85025; 85027; 85610; 85730; 93005; 96361; 96365; 96366; 96375; 96376; 99291; Q9967